=== PATIENT | female | born 1975 | race Caucasian/White ===

== ENCOUNTER 2018-04-01 17:20 | Outpatient (CLI) | payer OTHER ==
--- NOTE | 2018-04-02 10:49 | XRAY Report ---
Reason: COUGH Procedure Date: 04/01/2018 Accession Number: [id number] / [id number] Procedure: XR - Chest 2 View X-Ray CPT Code: 27553 FULL RESULT: EXAM: CHEST RADIOGRAPHY EXAM DATE: 04/01/2018 05:49 PM. CLINICAL HISTORY: Cough. COMPARISON: None. TECHNIQUE: 2 views. FINDINGS: Lungs/Pleura: There is mild peribronchial thickening. No focal airspace opacities evident. No pleural effusion. No pneumothorax. Normal volumes. Mediastinum: Heart and mediastinal contours are unremarkable. Other: None. IMPRESSION: Mild bronchial thickening with no lobar airspace disease. RADIA
== END 2018-04-01 17:21 | disposition home or self-care (01) ==
LOC: DI 17:20
PROVIDERS: ATTEND Nurse Practitioner Family
DX: R05 Cough (principal); F17.200 Nicotine dependence, unspecified, uncomplicated
CPT/HCPCS: 71046

== ENCOUNTER 2020-01-24 14:55 | Outpatient (CLI) | payer OTHER ==
--- NOTE | 2020-01-26 08:15 | Mammography Report ---
BILATERAL DIGITAL SCREENING MAMMOGRAM 3D/2D: 01/24/2020 CLINICAL: Baseline exam. Routine screening. No prior exams were available for comparison. The tissue of both breasts is heterogeneously dense. T his may lower the sensitivity of mammography. There is a possible irregular high density focal asymmetry in the right breast at 11 o'clock posterio r depth. There is a low density focal asymmetry in the left breast at 5 o'clock anterior depth. No other significant masses or calcifications are seen in either breast. IMPRESSION: INCOMPLETE: NEEDS ADDITIONAL IMAGING EVALUATION 1) The possible irregular high density focal asymmetry in the right breast at 11 o'clock posterior de pth is indeterminate. -Additional views with possible ultrasound are recommended. 2) The low density focal asymmetry in the left breast at 5 o'clock anterior depth is indeterminate. -Additional views with possible ultrasound are recommended. This exam was interpreted at Station ID: [id number]. NOTE: For mammograms, a report in lay terms will be sent to the patient. Approximately 15% of breast malignancies will not be visualized mammographically. In the management of a palpable breast mass, a negative mammogram must not discourage biopsy of a clinically suspicious lesion. Electronically Signed By: Héctor Cristina M.D. slc/:01/25/2020 08:05:15 ACR BI-RADS Category 0: Incomplete 3340F PARENCHYMAL PATTERN: (D) - The breast(s) demonstrate(s) heterogeneously dense fibroglandular christin temple. BI-RADS CATEGORY: (0) - 0 Mammo and US [id number] Immediate follow-up LATERALITY: (B)
== END 2020-01-24 14:56 | disposition home or self-care (01) ==
LOC: DI 14:55
PROVIDERS: ATTEND Nurse Practitioner Family
DX: Z12.31 Encounter for screening mammogram for malignant neoplasm of breast (principal); R92.8 Other abnormal and inconclusive findings on diagnostic imaging of breast
CPT/HCPCS: 77063; 77067

== ENCOUNTER 2020-02-25 08:00 | Outpatient (CLI) | payer OTHER | END 2020-02-25 23:59 | disposition home or self-care (01) | LOC: LAB.R 08:00 | PROVIDERS: ATTEND Physician Assistant | DX: R30.0 Dysuria (principal) | CPT/HCPCS: 87086 ==

== ENCOUNTER 2020-05-27 08:00 | Outpatient (CLI) | payer OTHER | END 2020-05-27 23:59 | disposition home or self-care (01) | LOC: LAB.R 08:00 | PROVIDERS: ATTEND Physician Assistant | DX: N39.0 Urinary tract infection, site not specified (principal) | CPT/HCPCS: 87077; 87086; 87181 ==

== ENCOUNTER 2020-09-08 12:55 | Outpatient (CLI) | payer OTHER ==
--- NOTE | 2020-09-11 12:58 | Ultrasound Report ---
LIMITED ULTRASOUND OF LEFT BREAST: 09/08/2020 CLINICAL: Short term follow up of the left breast, due for bilateral imaging. No prior exams were available for comparison. Color flow and real-time ultrasound of the left breast 3 o'clock and 6 o'clock regions were performe d. [place] scale images of the real-time examination were reviewed. There is a 1.2 cm x 0.3 cm x 0.6 cm oval mass in the left breast at 6 o'clock anterior depth 2 cm fro m the nipple. This oval mass is hypoechoic. This may correlate with mammography findings. Color jamal w imaging demonstrates that there is no vascularity present. There also is a 1 cm x 0.4 cm x 0.4 cm oval mass in the left breast at 6 o'clock middle depth 3 cm fr om the nipple. This oval mass is hypoechoic. This may correlate with mammography findings. Color f low imaging demonstrates that there is no vascularity present. Additionally, there is a 0.5 cm x 0.4 cm x 0.4 cm oval mass in the left breast at 3 o'clock anterior depth 3 cm from the nipple. This oval mass is hypoechoic. Color flow imaging demonstrates that ther e is no vascularity present. IMPRESSION: PROBABLY BENIGN The 1.2 cm x 0.3 cm x 0.6 cm oval mass in the left breast at 6 o'clock anterior depth resembles a com plicated cyst or a lymph node and is probably benign. The 1 cm x 0.4 cm x 0.4 cm oval mass in the left breast at 6 o'clock middle depth resembles a complic ated cyst or a lymph node and is probably benign. The 0.5 cm x 0.4 cm x 0.4 cm oval mass in the left breast at 3 o'clock anterior depth is consistent w ith clustered cysts, a complicated cyst, or a lymph node and is probably benign. A follow-up mammogram and an ultrasound in 6 months is recommended to demonstrate stability. Findings and recommendations were conveyed to the patient during today's evaluation. This exam was interpreted at Station ID: [id number]. Electronically Signed By: Shay Dye M.D. aty/:09/08/2020 18:05:43 Ultrasound BI-RADS: 3 Probably benign BI-RADS CATEGORY: (3) - 3 Mammo and US [id number] 6 month follow-up LATERALITY: (B)
--- NOTE | 2020-09-11 12:58 | Ultrasound Report ---
LIMITED ULTRASOUND OF RIGHT BREAST: 09/08/2020 CLINICAL: Short term follow up for bilateral breasts. No prior exams were available for comparison. Color flow and real-time ultrasound of the right breast 11 o'clock region were performed. [place] scale images of the real-time examination were reviewed. There is a 1 cm x 0.4 cm x 0.9 cm oval cyst in the right breast at 11 o'clock anterior depth 1 cm fro m the nipple. This oval cyst is hypoechoic. Color flow imaging demonstrates that there is no vascul arity present. There also is a 0.9 cm x 0.4 cm x 0.9 cm oval cyst in the right breast at 11 o'clock middle depth 1 c m from the nipple. This oval cyst is hypoechoic. Color flow imaging demonstrates that there is no v ascularity present. IMPRESSION: PROBABLY BENIGN The 1 cm x 0.4 cm x 0.9 cm oval cyst in the right breast at 11 o'clock anterior depth resembles a com plicated cyst versus focal ductal ectasia and is probably benign. The 0.9 cm x 0.4 cm x 0.9 cm oval cyst in the right breast at 11 o'clock middle depth resembles a com plicated cyst or focal ductal ectasia and is probably benign. A follow-up mammogram and an ultrasound in 6 months is recommended to demonstrate stability. Findings and recommendations were conveyed to the patient during today's evaluation. This exam was interpreted at Station ID: [id number]. Electronically Signed By: Shay Dye M.D. aty/:09/08/2020 18:11:19 Ultrasound BI-RADS: 3 Probably benign BI-RADS CATEGORY: (3) - 3 Mammo and US [id number] 6 month follow-up LATERALITY: (B)
--- NOTE | 2020-09-11 12:58 | Mammography Report ---
BILATERAL DIGITAL DIAGNOSTIC MAMMOGRAM 3D/2D: 09/08/2020 CLINICAL: Patient returns today to evaluate asymmetries in bilateral breasts. Comparison is made to exam dated: 01/24/2020 mammogram - [facility]. The tissue of both breasts is heterogeneously dense. This may lower the sensitivity of mammography. There is a possible oval high density focal asymmetry in the right breast at 11 o'clock posterior dep th. This is not significantly changed. There is a low density focal asymmetry in the left breast at 5 o'clock anterior depth. This is not s ignificantly changed. No other significant masses or calcifications are seen in either breast. IMPRESSION: INCOMPLETE: NEEDS ADDITIONAL IMAGING EVALUATION The possible oval high density focal asymmetry in the right breast at 11 o'clock posterior depth is i ndeterminate. The low density focal asymmetry in the left breast at 5 o'clock anterior depth is indeterminate. An ultrasound is recommended for further evaluation and is scheduled to immediately follow this exami nation. This exam was interpreted at Station ID: [id number]. NOTE: For mammograms, a report in lay terms will be sent to the patient. Approximately 15% of breast malignancies will not be visualized mammographically. In the management of a palpable breast mass, a negative mammogram must not discourage biopsy of a clinically suspicious lesion. Electronically Signed By: Shay Dye M.D. aty/:09/08/2020 15:02:25 ACR BI-RADS Category 0: Incomplete 3340F PARENCHYMAL PATTERN: (D) - The breast(s) demonstrate(s) heterogeneously dense fibroglandular christin temple. BI-RADS CATEGORY: (0) - 0 Ultrasound [id number] Immediate follow-up LATERALITY: (B)
== END 2020-09-08 12:56 | disposition home or self-care (01) ==
LOC: DI 12:55
PROVIDERS: ATTEND Nurse Practitioner Family
DX: N60.12 Diffuse cystic mastopathy of left breast (principal); N60.11 Diffuse cystic mastopathy of right breast

== ENCOUNTER 2020-12-17 08:00 | Outpatient (CLI) | payer OTHER | END 2020-12-17 23:59 | disposition home or self-care (01) | LOC: LAB.S 08:00 | PROVIDERS: ATTEND Emergency Medicine | DX: R07.0 Pain in throat (principal); Z20.822 Contact with and (suspected) exposure to COVID-19 | CPT/HCPCS: 87070; 87077 ==

== ENCOUNTER 2021-03-28 18:45 | Outpatient (CLI) | payer OTHER | END 2021-03-28 23:59 | disposition home or self-care (01) | LOC: LAB 18:45 | PROVIDERS: ATTEND Emergency Medicine | DX: R07.0 Pain in throat (principal); Z20.822 Contact with and (suspected) exposure to COVID-19 | CPT/HCPCS: 87070 ==

== ENCOUNTER 2021-04-06 08:00 | Outpatient (CLI) | payer OTHER ==
--- NOTE | 2021-04-06 23:57 | XRAY Report ---
PROCEDURE: Chest 2 View X-Ray INDICATIONS: COUGH TECHNIQUE: 2 views of the chest. COMPARISON: Chest radiographs 04/01/2018. FINDINGS: Surgical changes and devices: None. Lungs and pleura: No pleural effusions or pneumothorax. Lungs are clear. Mediastinum: Mediastinal contours are normal. Heart size is normal. Bones and chest wall: No suspicious bony abnormalities. Soft tissues appear unremarkable. IMPRESSION: No acute cardiopulmonary abnormality. Reviewed by: Vik Mejias MD on 04/06/2021 11:56 PM PST Approved by: Vik Mejias MD on 04/06/2021 11:56 PM [facility] Station ID: [id number]
== END 2021-04-06 23:59 | disposition home or self-care (01) ==
LOC: DI.S 08:00
PROVIDERS: ATTEND Physician Assistant Medical
DX: R05.9 Cough, unspecified (principal); J06.9 Acute upper respiratory infection, unspecified; Z20.822 Contact with and (suspected) exposure to COVID-19

== ENCOUNTER 2021-09-19 13:43 | Outpatient (CLI) | payer OTHER | END 2021-09-19 13:44 | disposition critical access hospital (66) | LOC: EMS 13:43 | DX: M79.10 Myalgia, unspecified site (principal); R51.9 Headache, unspecified; R50.9 Fever, unspecified; R11.0 Nausea; R42 Dizziness and giddiness | CPT/HCPCS: A0425; A0427 ==

== ENCOUNTER 2021-09-19 14:19 | Emergency (ER) | payer OTHER ==
--- NOTE | 2021-09-19 14:20 | ED Physician Documentation ---
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 Nausea with some vomiting. General weakness since last night.) Associated symptoms: Fever, Chills, Dry cough, Dyspnea, NVD. No: Nasal congestion, Chest pain Contributing factors: Sick contact (her son with URI symptoms at home and tested COVID negative. She did home test 3 days ago and was negative.), COPD / asthma, Other (history of migraines as well.). No: Immunocompromised Worsened by: Activity Similar symptoms before: Diagnosis (migraines) Recently seen: Not recently seen Review of Systems Constitutional: reports: Chills, Myalgias Nose: reports: Rhinorrhea / runny nose, Congestion Throat: denies: Dental pain / toothache, Sore throat Cardiac: denies: Chest pain / pressure Respiratory: reports: Dyspnea, Cough GI: reports: Nausea, Vomiting. denies: Abdominal Pain, Diarrhea Skin: denies: Rash, Lesions Musculoskeletal: denies: Neck pain, Back pain Neurologic: reports: Headache (c/w prior migraines with light sensitive, wavy lines on vision, vomiting.). 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 - Present Medications Home Medications: Ambulatory Orders Medication Instructions Recorded Confirmed Hydrocodone/Acetaminophen 1 each PO Q6H PRN #10 tablet 05/20/14 [Hydrocodon-Acetaminophen 5-325] Ondansetron Odt [Zofran] 4 mg TL Q6H PRN #10 tablet 05/20/14 Thyroid,Pork [Nature-Throid] 1.5 tab ORAL DAILY 05/20/14 05/20/14 Benzonatate [Tessalon] 100 mg PO TID PRN #20 cap 09/19/21 Naproxen 250 mg PO TID 7 Days #20 tablet 09/19/21 Ondansetron Odt [Zofran] 4 mg TL Q6H PRN #15 tablet 09/19/21 Oxycodone HCl/Acetaminophen 1 each PO Q6H PRN #12 tablet 09/19/21 [Percocet 5-325 mg Tablet] - Allergies Allergies/Adverse Reactions: Allergies Allergy/AdvReac Type Severity Reaction Status Date / Time No Known Drug Allergies Allergy Verified 09/19/21 14:38 - Social History Does the pt smoke?: Yes Smoking Status: Current every day smoker Does the pt drink ETOH?: No Does the pt have substance abuse?: No - Immunizations Immunizations are current?: Yes PD ED PE NORMAL - Vitals Vital signs reviewed: Yes - General General: Alert and oriented X 3, Well developed/nourished, Other (appears uncomfortable and in pain due to headache. COvering eyes to minimize light. ) - HEENT HEENT: Atraumatic, PERRL, EOMI (light sensitive), Ears normal, Moist mucous membranes, Pharynx benign - Neck Neck: Supple, no meningeal sign, No adenopathy - Cardiac Cardiac: RRR, No murmur - Respiratory Respiratory: No respiratory distress. No: Clear bilaterally (some scattered exp wheezes. No coarse sounds. ) - Abdomen Abdomen: Soft, Non tender - Back Back: No CVA TTP - Derm Derm: Normal color, Warm and dry, No rash - Neuro Neuro: Alert and oriented X 3, No motor deficit, No sensory deficit, Normal speech Results - Vitals Vitals: Oxygen O2 Source Room air - Labs Labs: Laboratory Tests 09/19/21 09/19/21 09/19/21 14:42 14:42 14:42 WBC 8.9 RBC 4.45 Hgb 13.4 Hct 40.3 MCV 90.6 MCH 30.1 MCHC 33.3 RDW 12.8 Plt Count 249 MPV 10.3 Neut # (Auto) 7.5 H Lymph # (Auto) 0.4 L Kane # (Auto) 0.9 Eos # (Auto) 0.1 Baso # (Auto) 0.1 Absolute Nucleated RBC 0.00 Nucleated RBC % 0.0 Sodium 127 L Potassium 4.2 Chloride 92 L Carbon Dioxide 25 Anion Gap 10.0 BUN 8 Creatinine 0.7 Estimated GFR (MDRD) 90 Glucose 114 H Lactic Acid 1.2 Calcium 8.9 Total Bilirubin 0.3 AST 17 ALT 18 Alkaline Phosphatase 70 Total Protein 7.1 Albumin 4.0 Globulin 3.1 Albumin/Globulin Ratio 1.3 Lipase 28 Urine Color Urine Clarity Urine pH Ur Specific [place] Urine Protein Urine Glucose (UA) Urine Ketones Urine Occult Blood Urine Nitrite Urine Bilirubin Urine Urobilinogen Ur Leukocyte Esterase Ur Microscopic Review Urine Culture Comments Nasal Adenovirus (PCR) Nasal B. parapertussis DNA (PCR) Nasal Coronavir 229E PCR Nasal Coronavir HKU1 PCR Nasal Coronavir NL63 PCR Nasal Coronavir OC43 PCR Nasal Enterovir/Rhinovir PCR Nasal Influenza B PCR Nasal Influenza A PCR Nasal Parainfluen 1 PCR Nasal Parainfluen 2 PCR Nasal Parainfluen 3 PCR Nasal Parainfluen 4 PCR Nasal RSV (PCR) Nasal B.pertussis DNA PCR Nasal C.pneumoniae (PCR) Lucho Human Metapneumo PCR Nasal M.pneumoniae (PCR) Nasal SARS-CoV-2 (PCR) 09/19/21 09/19/21 15:45 15:45 WBC RBC Hgb Hct MCV MCH MCHC RDW Plt Count MPV Neut # (Auto) Lymph # (Auto) Kane # (Auto) Eos # (Auto) Baso # (Auto) Absolute Nucleated RBC Nucleated RBC % Sodium Potassium Chloride Carbon Dioxide Anion Gap BUN Creatinine Estimated GFR (MDRD) Glucose Lactic Acid Calcium Total Bilirubin AST ALT Alkaline Phosphatase Total Protein Albumin Globulin Albumin/Globulin Ratio Lipase Urine Color YELLOW Urine Clarity CLEAR Urine pH 7.5 Ur Specific [place] 1.020 Urine Protein NEGATIVE Urine Glucose (UA) NEGATIVE Urine Ketones NEGATIVE Urine Occult Blood TRACE-INTA Urine Nitrite NEGATIVE Urine Bilirubin NEGATIVE Urine Urobilinogen 0.2 (NORMAL) Ur Leukocyte Esterase NEGATIVE Ur Microscopic Review NOT INDICATED Urine Culture Comments NOT INDICATED Nasal Adenovirus (PCR) NOT DETECTED Nasal B. parapertussis DNA (PCR) NOT DETECTED Nasal Coronavir 229E PCR NOT DETECTED Nasal Coronavir HKU1 PCR NOT DETECTED Nasal Coronavir NL63 PCR NOT DETECTED Nasal Coronavir OC43 PCR NOT DETECTED Nasal Enterovir/Rhinovir PCR DETECTED A Nasal Influenza B PCR NOT DETECTED Nasal Influenza A PCR NOT DETECTED Nasal Parainfluen 1 PCR NOT DETECTED Nasal Parainfluen 2 PCR NOT DETECTED Nasal Parainfluen 3 PCR NOT DETECTED Nasal Parainfluen 4 PCR NOT DETECTED Nasal RSV (PCR) NOT DETECTED Nasal B.pertussis DNA PCR NOT DETECTED Nasal C.pneumoniae (PCR) NOT DETECTED Lucho Human Metapneumo PCR NOT DETECTED Nasal M.pneumoniae (PCR) NOT DETECTED Nasal SARS-CoV-2 (PCR) DETECTED A - Rads (name of study) chest xray Radiology: Prelim report reviewed (no infiltrates), See rad report PD MEDICAL DECISION MAKING - ED course Complexity details: re-evaluated patient (Her headache is greatly improved with migraine targeted type medicine of Compazine and Toradol. Her nausea is improved as well. She is given 2 L of fluid IV.), considered differential (Seems like a viral illness. We can test for COVID. This seems to have also triggered a migraine with migrainous character of headache. She does not seem meningitic by exam. Will give IV fluids and medications.), d/w patient ED course: history of migraines and has BMI 29. Could benefit from Paxlovid with her COVID. IMproved headache/migraine with IV fluids/meds. Departure - Departure Disposition: 01 Home, Self Care Clinical Impression: Acute migraine, Acute viral syndrome, Dehydration Condition: Stable Record reviewed to determine appropriate education?: Yes Instructions: ED Viral Syndrome Prescriptions: Naproxen 250 mg PO TID 7 Days #20 tablet Oxycodone HCl/Acetaminophen [Percocet 5-325 mg Tablet] 1 each PO Q6H PRN #12 tablet PRN Reason: pain Benzonatate [Tessalon] 100 mg PO TID PRN #20 cap PRN Reason: Cough Ondansetron Odt [Zofran] 4 mg TL Q6H PRN #15 tablet PRN Reason: Nausea / Vomiting Comments: Presume this is a viral illness with triggering of migraine as well as some dehydration. I would expect some illness to continue over the next couple of days likely. For that we can have you take ondansetron if needed for nausea and naproxen anti-inflammatory 3 times a day for pains and headache. To that add Tylenol every 4-6 hours if needed for pain or Percocet if needed for worse pain/headache. Tessalon if needed for cough. I transmitted your prescriptions to [facility] in [place]. Your blood counts and vital signs are good. Your oxygenation level is good. No signs of sepsis at this point. Your chest x-ray is also clear without any pneumonia. Urinalysis without any signs of infection. I therefore presume a viral type illness. We did do COVID respiratory panel that will result later. Your home test has been negative but we rechecked. Small frequent fluids and see how you do over the next couple of days. Return if worse again. I am prescribing a short course of narcotic pain medication for you. These are potentially dangerous and addictive medications that should be used carefully. These medications may constipate you. Take an [id number] stool softener such as docusate twice daily with plenty of water while taking these medications. If you go 24 hours without a bowel movement, take [id number] MiraLAX, per package instructions. Do not drink or drive while taking these medications. If you received narcotic or sedating medications while in the emergency department do not drive for 24 hours. Store this medication in a safe, secure place and out of reach of children. It is a violation of federal law to give or sell this medication to another person or to use in a manner other than prescribed. The ED will not refill narcotic prescriptions, including prescriptions lost or stolen. You can dispose of unwanted medications at the [facility]'s office or at several pharmacies such as [facility]. Added commentary, Your respiratory panel just resulted and showed 2 viruses present. One was rhinovirus which is a common head cold. The other was COVID. As such she can take the pack Slo-Bid as directed in the kit twice daily for 5 days to help reduce the severity of the COVID infection. Discharge Date/Time: 09/19/21 17:13
[2021-09-19] MEDS ORDERED: KETOROLAC 15 MG/ML VIAL IVP STA (14:32)
[2021-09-19] MEDS ORDERED: SODIUM CHLORIDE 0.9% 1,000 ML IV STA ×2 (14:34→15:08)
[2021-09-19] MEDS ORDERED: PROCHLORPERAZINE 10 MG/2 ML VIAL IVP STA (14:34)
[2021-09-19] MEDS ORDERED: diphenhydrAMINE INJ 50 MG/ML VIAL IVP STA (14:34)
[2021-09-19] MEDS ORDERED: HYDROmorphone 0.5 MG/0.5 ML SYRINGE IVP STA ×2 (14:37→15:29)
[2021-09-19 14:53] LABS: BASOPHILS # (AUTO) 0.1 10^3/uL (0.0-0.1); BASOPHILS % (AUTO) 0.9 %; EOSINOPHILS # (AUTO) 0.1 10^3/uL (0.0-0.7); EOSINOPHILS % (AUTO) 0.6 %; HCT - HEMATOCRIT 40.3 % (37.0-47.0); HGB - HEMOGLOBIN 13.4 g/dL (12.0-16.0); LYMPHOCYTES # (AUTO) 0.4 10^3/uL (1.5-3.5); MEAN CORPUSCULAR HEMOGLOBIN 30.1 pg (27.0-31.0); MEAN CORPUSCULAR HGB CONC 33.3 g/dL (32.0-36.0); MEAN CORPUSCULAR VOLUME 90.6 fL (81.0-99.0); MEAN PLATELET VOLUME 10.3 fL (7.9-10.8); MONOCYTES # (AUTO) 0.9 10^3/uL (0.0-1.0); MONOCYTES % (AUTO) 10.2 %; NEUTROPHILS # (AUTO) 7.5 10^3/uL (1.5-6.6); NEUTROPHILS % (AUTO) 83.9 %; PLT - PLATELET COUNT 249 10^3/uL (130-450); RED BLOOD COUNT 4.45 10^6/uL (4.20-5.40); RED CELL DISTRIBUTION WIDTH 12.8 % (12.0-15.0); WHITE BLOOD COUNT 8.9 x10^3/uL (4.8-10.8)
--- NOTE | 2021-09-19 14:59 | XRAY Report ---
PROCEDURE: Chest 1 View X-Ray INDICATIONS: cough and dyspnea/fever TECHNIQUE: One view of the chest was acquired. COMPARISON: None. FINDINGS: Surgical changes and devices: None. Lungs and pleura: No pleural effusions or pneumothorax. Lungs are clear. Mediastinum: Mediastinal contours appear normal. Heart size is normal. Bones and chest wall: No suspicious bony lesions. Overlying soft tissues appear unremarkable. IMPRESSION: No acute cardiopulmonary pathology. Reviewed by: Aryan Donaldson MD on 09/19/2021 2:57 PM PDT Approved by: Aryan Donaldson MD on 09/19/2021 2:57 PM PDT Station ID: [id number]
[2021-09-19 15:03] LABS: ALBUMIN/GLOBULIN RATIO 1.3 (1.0-2.2); BILIRUBIN,TOTAL 0.3 mg/dL (0.2-1.0); CALCIUM 8.9 mg/dL (8.5-10.3); CREATININE 0.7 mg/dL (0.4-1.0); POTASSIUM 4.2 mmol/L (3.5-5.0); TOTAL PROTEIN 7.1 g/dL (6.7-8.2)
[2021-09-19] MEDS ORDERED: ACETAMINOPHEN 325 MG TABLET PO STA (15:28)
[2021-09-19 15:54] LABS: BILIRUBIN,URINE NEGATIVE (NEGATIVE); CLARITY,URINE CLEAR (CLEAR); GLUCOSE, URINE (UA) NEGATIVE (NEGATIVE); KETONES,URINE (UA) NEGATIVE (NEGATIVE); LEUKOCYTE ESTERASE, URINE NEGATIVE (NEGATIVE); NITRITE,URINE NEGATIVE (NEGATIVE); OCCULT BLOOD,URINE TRACE-INTA (NEGATIVE); PH,URINE 7.5 PH (5.0-7.5); PROTEIN,URINE NEGATIVE (NEGATIVE); UROBILINOGEN,URINE 0.2 (NORMAL) E.U./dL (NORMAL)
[2021-09-19 16:31] VITALS: BP 115/72
[2021-09-19 16:43] LABS: B. PARAPERTUSSIS- RESP PCR PAN NOT DETECTED; B. PERTUSSIS- RESP PCR PANEL NOT DETECTED; C. PNEUMONIAE- RESP PCR PANEL NOT DETECTED; CORONAVIRUS 229E-RESP PCR NOT DETECTED; CORONAVIRUS HKU1-RESP PCR NOT DETECTED; CORONAVIRUS NL63-RESP PCR NOT DETECTED; INFLUENZA A- RESP PCR PANEL NOT DETECTED; INFLUENZA B - RESP PCR PANEL NOT DETECTED; M. PNEUMONIAE- RESP PCR PANEL NOT DETECTED; PARAINFLUENZA VIRUS 1 NOT DETECTED; PARAINFLUENZA VIRUS 2 NOT DETECTED; PARAINFLUENZA VIRUS 3 NOT DETECTED; PARAINFLUENZA VIRUS 4 NOT DETECTED; RHINOVIRUS/ENTEROVIRUS DETECTED; RSV- RESP PCR PANEL NOT DETECTED
[2021-09-19 16:44] LABS: CORONAVIRUS OC43-RESP PCR NOT DETECTED; HUMAN METAPNEUMOVIRUS NOT DETECTED
[2021-09-19 16:45] LABS: SARS-CoV-2 -RESP PCR PANEL DETECTED
[2021-09-19] MEDS ORDERED: NIRMATRELVIR/RITONAVIR PREPACK PO STA (16:50)
== END 2021-09-19 17:13 | disposition home or self-care (01) ==
LOC: EDUNIT# → EDBD → ED 14:19
DX: G43.909 Migraine, unspecified, not intractable, without status migrainosus (principal); E86.0 Dehydration; B34.8 Other viral infections of unspecified site; U07.1 COVID-19; F17.200 Nicotine dependence, unspecified, uncomplicated
CPT/HCPCS: 36415; 71045; 80053; 81003; 83605; 83690; 85025; 87633; 96361; 96374; 96375; 99284; 99285; A9270; J1170; J1200; J3490; 81001; 87086

== ENCOUNTER 2021-09-24 13:13 | Emergency (ER) | payer OTHER ==
[2021-09-24] MEDS ORDERED: SODIUM CHLORIDE 0.9% 1,000 ML IV STA (13:46)
[2021-09-24] MEDS ORDERED: HYDROmorphone 1 MG/ML CARPUJECT IVP STA (13:46)
[2021-09-24] MEDS ORDERED: KETOROLAC 15 MG/ML VIAL IVP STA (13:46)
[2021-09-24] MEDS ORDERED: PROCHLORPERAZINE 10 MG/2 ML VIAL IVP STA (13:46)
--- NOTE | 2021-09-24 13:47 | ED Physician Documentation ---
PD HPI HEADACHE - Stated complaint Stated Complaint: C+,HEADACHE,DIZZY,NAUSEA - Chief complaint Chief Complaint: Neuro - History obtained from History obtained from: Patient - Additional information Additional information: 46-year-old woman presents with persistent headache related to COVID. She has been sick for the last 8 days and saw my partner last Friday at which time she was diagnosed with COVID. She has a history of migraines but despite her usual migraine regimen including rizatriptan, Fioricet, Tylenol and ibuprofen she remains having very severe diffuse headache associated with light sensitivity. No more fevers. No cough or congestion of significance. She was sent home with a prescription for Percocet last week which she was helped by, noting she is out now. She is not driving. She is status post remote hysterectomy so no possibility of . Headache was gradual in onset. Review of Systems Ten Systems: 10 systems reviewed and negative Constitutional: reports: Chills, Fatigue, Sweats. 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 - Present Medications Home Medications: Ambulatory Orders Medication Instructions Recorded Confirmed Hydrocodone/Acetaminophen 1 each PO Q6H PRN #10 tablet 05/20/14 [Hydrocodon-Acetaminophen 5-325] Ondansetron Odt [Zofran] 4 mg TL Q6H PRN #10 tablet 05/20/14 Thyroid,Pork [Nature-Throid] 1.5 tab ORAL DAILY 05/20/14 05/20/14 Benzonatate [Tessalon] 100 mg PO TID PRN #20 cap 09/19/21 Naproxen 250 mg PO TID 7 Days #20 tablet 09/19/21 Ondansetron Odt [Zofran] 4 mg TL Q6H PRN #15 tablet 09/19/21 Oxycodone HCl/Acetaminophen 1 each PO Q6H PRN #12 tablet 09/19/21 [Percocet 5-325 mg Tablet] Oxycodone HCl/Acetaminophen 1 - 2 each PO Q6H PRN #14 tablet 09/24/21 [Percocet 5-325 mg Tablet] - Allergies Allergies/Adverse Reactions: Allergies Allergy/AdvReac Type Severity Reaction Status Date / Time No Known Drug Allergies Allergy Verified 09/24/21 13:37 - Social History Does the pt smoke?: Yes Smoking Status: Current every day smoker Does the pt drink ETOH?: No Does the pt have substance abuse?: No - Immunizations Immunizations are current?: Yes PD ED PE NORMAL - Vitals Vital signs reviewed: Yes - General General: Alert and oriented X 3 (Appears uncomfortable and light sensitive without meningismus.) - HEENT HEENT: PERRL, EOMI - Neck Neck: Supple, no meningeal sign, No bony TTP - Respiratory Respiratory: No respiratory distress, Clear bilaterally - Abdomen Abdomen: Non tender - Neuro Neuro: Alert and oriented X 3, No motor deficit, No sensory deficit, Normal speech Eye Opening: Spontaneous Motor: Obeys Commands Verbal: Oriented GCS Score: 15 Results - Vitals Vitals: Vital Signs - 24 hr 09/24/21 13:33 Temperature 98.2 C H Heart Rate 92 Respiratory 16 Rate Blood Pressure 136/84 H O2 Saturation 100 Oxygen O2 Source Room air PD MEDICAL DECISION MAKING - ED course ED course: 46-year-old woman with history of migraines presents with significant headache related to COVID. She does not appear ill and has no signs of meningismus or other severe illness. After the administration of some IV fluids, Compazine, Toradol, and Dilaudid she felt much better and requested discharge. Departure - Departure Disposition: 01 Home, Self Care Clinical Impression: Acute viral syndrome, Migraine Condition: Good Record reviewed to determine appropriate education?: Yes Instructions: ED Viral Syndrome, ED Headache Migraine Prescriptions: Oxycodone HCl/Acetaminophen [Percocet 5-325 mg Tablet] 1 - 2 each PO Q6H PRN #14 tablet PRN Reason: pain Comments: I sent your prescription electronically to [facility] in [place]. Call your doctor to arrange a follow-up appointment, make the next available appointment. In the interim, return anytime if worse or if new symptoms develop. I am prescribing a short course of narcotic pain medication for you. These are potentially dangerous and addictive medications that should be used carefully. These medications may constipate you. Take an [id number] stool softener (docusate) twice daily with plenty of water while taking these medications. If you go 24 hours without a bowel movement, take [id number] miralax, per package instructions. Do not drink or drive while taking these medications. If you received narcotic or sedating medications while in the emergency department, do not drive for 24 hours. Store this medication in a safe, secure place and out of reach of children. It is a violation of federal law to give or sell this medication to another person or to use in a manner other than prescribed. The ED will not refill narcotic prescriptions, including prescriptions lost or stolen. To dispose of unwanted medications: 1. [facility] at [address] in [place] has a medication drop box. They accept prescription medications (in pill form) Friday through Friday 9:00 a.m. to 5:00 p.m. 2. The [facility] [employer] accepts prescription medications (in pill form only) for disposal year round. Call for more information. 3. Contact the [facility] for the next [facility] sponsored prescription drug collection event. , [phone], or [phone]; Note that many narcotic pain relievers also contain Tylenol/acetaminophen. Please ensure that your total dose of acetaminophen from all sources does not exceed 3 g (3000 mg) per day.
[2021-09-24 14:39] VITALS: BP 127/72
== END 2021-09-24 15:15 | disposition home or self-care (01) ==
LOC: ED 13:13
DX: U07.1 COVID-19 (principal); G43.909 Migraine, unspecified, not intractable, without status migrainosus; B34.9 Viral infection, unspecified; F17.200 Nicotine dependence, unspecified, uncomplicated
CPT/HCPCS: 96374; 99283; J1170

== ENCOUNTER 2022-02-27 13:20 | Outpatient (CLI) | payer OTHER ==
[2022-02-27 20:18] LABS: THYROID STIMULATING HORMONE 5.11 uIU/mL (0.34-5.60)
[2022-02-27 20:19] LABS: FREE T3 2.99 pg/mL (2.5-3.9)
[2022-02-27 20:20] LABS: FREE T4 (FREE THYROXINE) 0.74 ng/dL (0.58-1.64)
== END 2022-02-27 13:21 | disposition home or self-care (01) ==
LOC: LAB.S 13:20
PROVIDERS: ATTEND Naturopath
DX: E03.9 Hypothyroidism, unspecified (principal)
CPT/HCPCS: 36415; 84439; 84443; 84481

== ENCOUNTER 2022-10-24 11:05 | Emergency (ER) | payer OTHER ==
[2022-10-24 11:29] VITALS: BP 136/77
[2022-10-24] MEDS ORDERED: diphenhydrAMINE INJ 50 MG/ML VIAL IVP STA (12:41)
[2022-10-24] MEDS ORDERED: PROCHLORPERAZINE 10 MG/2 ML VIAL IVP STA (12:41)
[2022-10-24] MEDS ORDERED: KETOROLAC 30 MG/ML VIAL IVP STA (12:42)
--- NOTE | 2022-10-24 12:44 | ED Physician Documentation ---
History of Present Illness - Stated complaint Stated Complaint: MIGRAINE,LETHARGIC,COUGH - Chief complaint Chief Complaint: General - Additonal information Additional information: 47-year-old female presents to the emergency department for evaluation of several days headache, nausea and vomiting. States that she is prone to migraines and in the past has used triptans but her PCP retired and has not been able to get a refill. She recently underwent abdominal mesh surgery for uterine prolapse and used oxycodone without resolution of symptoms. No fevers. She does endorse light and noise sensitivity. She has not vomited now for 48 hours but reports complete lack of appetite, Also states that she has had a cough for about a week and coughing in the setting of her recent surgery is exacerbating her abdominal pain. No fevers. Review of Systems Constitutional: denies: Fever Nose: denies: Congestion Cardiac: reports: Reviewed and negative Respiratory: reports: Cough GI: reports: Abdominal Pain, Nausea, Vomiting : reports: Reviewed and negative Skin: reports: Reviewed and negative Musculoskeletal: reports: Reviewed and negative Neurologic: reports: Headache. 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 - Present Medications Home Medications: Ambulatory Orders Medication Instructions Recorded Confirmed Hydrocodone/Acetaminophen 1 each PO Q6H PRN #10 tablet 05/20/14 [Hydrocodon-Acetaminophen 5-325] Ondansetron Odt [Zofran] 4 mg TL Q6H PRN #10 tablet 05/20/14 Thyroid,Pork [Nature-Throid] 1.5 tab ORAL DAILY 05/20/14 05/20/14 Benzonatate [Tessalon] 100 mg PO TID PRN #20 cap 09/19/21 Naproxen 250 mg PO TID 7 Days #20 tablet 09/19/21 Ondansetron Odt [Zofran] 4 mg TL Q6H PRN #15 tablet 09/19/21 Oxycodone HCl/Acetaminophen 1 each PO Q6H PRN #12 tablet 09/19/21 [Percocet 5-325 mg Tablet] Oxycodone HCl/Acetaminophen 1 - 2 each PO Q6H PRN #14 tablet 09/24/21 [Percocet 5-325 mg Tablet] Benzonatate [Tessalon] 200 mg PO TID PRN #20 cap 10/24/22 SUMAtriptan [Imitrex] 25 mg PO BID #6 tablet 10/24/22 - Allergies Allergies/Adverse Reactions: Allergies Allergy/AdvReac Type Severity Reaction Status Date / Time No Known Drug Allergies Allergy Verified 10/24/22 11:24 - Social History Does the pt smoke?: Yes Smoking Status: Current every day smoker Does the pt drink ETOH?: No Does the pt have substance abuse?: No - Immunizations Immunizations are current?: Yes PD ED PE NORMAL - General General: Alert and oriented X 3, No acute distress, Well developed/nourished - HEENT HEENT: Atraumatic, Moist mucous membranes - Neck Neck: Supple, no meningeal sign, No adenopathy, No JVD - Cardiac Cardiac: No murmur. No: RRR (Diffuse scattered expiratory wheeze) - Respiratory Respiratory: No respiratory distress, Clear bilaterally - Abdomen Abdomen: Normal bowel sounds, Soft, Non distended. No: Non tender (Generally tender lower abdomen without guarding or rebound.) - Back Back: No CVA TTP - Derm Derm: Normal color, Warm and dry - Extremities Extremities: No deformity - Neuro Neuro: Alert and oriented X 3, power regulator 2-12 intact, No motor deficit, No sensory deficit, Normal speech, Other (Normal gait) Eye Opening: Spontaneous Motor: Localizes to Pain Results - Vitals Vitals: Vital Signs - 24 hr 10/24/22 11:21 Temperature 37.3 C Heart Rate 79 Respiratory 20 Rate Blood Pressure 136/77 H O2 Saturation 100 Oxygen O2 Source Room air - Labs Labs: Laboratory Tests 10/24/22 10/24/22 13:03 13:03 Urine Color DARK YELLOW Urine Clarity CLEAR Urine pH 7.0 Ur Specific [place] 1.010 Urine Protein NEGATIVE Urine Glucose (UA) NEGATIVE Urine Ketones NEGATIVE Urine Occult Blood NEGATIVE Urine Nitrite NEGATIVE Urine Bilirubin NEGATIVE Urine Urobilinogen 0.2 (NORMAL) Ur Leukocyte Esterase NEGATIVE Ur Microscopic Review NOT INDICATED Urine Culture Comments NOT INDICATED Urine HCG, Qual NEGATIVE - Rads (name of study) cxr Relevant Findings:: Final report received (No acute cardiopulmonary process) PD Medical Decision Making - ED course Complexity details: reviewed results, re-evaluated patient, considered differential, d/w patient ED course: 47-year-old female presents emergency department for evaluation of a headache that began about 3 days ago. Associated light and noise sensitivity. No fevers. She does have a history of migraines that have typically improved with triptan's in the past. She also has had a cough for about 1 week. This cough has exacerbated her lower abdominal pain. She did have a abdominal mesh surgery for uterine prolapse in late September. On exam she is alert and well-appearing. She prefers to wear an eye mask due to light sensitivity however she has no focal neurodeficits. I did obtain a urinalysis that showed no signs of infection. In order to treat the initial headache the patient was administered a liter of IV fluids, Toradol, Compazine and Benadryl and on reevaluation reported that her headache had not improved. Following this a single dose of 6 mg sumatriptan hand was injected subcutaneously and on reevaluation her headache had begun to subside. At this time I feel patient is stable for discharge home given unremarkable vital signs and normal neurological exam without fever. Clinically the history is most consistent with a migraine variant headache. I will write a prescription for a triptan for future use with headaches. Patient is requesting Tessalon Perles to help with cough which I feel is appropriate though the chest x-ray again shows no clinical findings suggest pneumonia. She is discharged home in stable condition with usual emergent return precautions discussed Departure - Departure Disposition: 01 Home, Self Care Clinical Impression: Headache Qualifiers: Headache type: other headache syndrome Qualified Code(s): G44.89 - Other headache syndrome Cough Qualifiers: Cough type: acute Qualified Code(s): R05.1 - Acute cough Condition: Stable Prescriptions: SUMAtriptan [Imitrex] 25 mg PO BID #6 tablet Benzonatate [Tessalon] 200 mg PO TID PRN #20 cap PRN Reason: Cough Comments: Mitzi you came to the emergency department because for 3 days you have been having a cough. You have also developed a headache that has not responded to medications at home. You do have a history of migraines and this feels similar. Here in the emergency department we did obtain a chest x-ray that showed no findings to suggest pneumonia or any other worrisome pulmonary process. Initially we did give you some Compazine Benadryl and Toradol which are typical combination of medications to control of migraine but they did not improve. Because you have had success with triptans in the past I then gave you a single dose of sumatriptan hand subcutaneously and on reevaluation your headache is started to improve. I expect that over the next 24 hours your headache slowly resolves. I sent a prescription for limited amount of sumatriptan to [facility] in [place]. I have also sent a prescription for Tessalon Perles a cough suppressant to [facility]. Please discuss this ED visit with your primary care doctor. Return to the ER for any worsening or new symptoms
--- NOTE | 2022-10-24 13:06 | XRAY Report ---
PROCEDURE: Chest 1 View X-Ray INDICATIONS: cough TECHNIQUE: One view of the chest was acquired. COMPARISON: Chest x-ray 09/19/2021 FINDINGS: Surgical changes and devices: None. Lungs and pleura: No pleural effusions or pneumothorax. Lungs are clear. Mediastinum: Mediastinal contours appear normal. Heart size is normal. Bones and chest wall: No suspicious bony lesions. Overlying soft tissues appear unremarkable. IMPRESSION: No acute cardiopulmonary process. Reviewed by: Sabi Salmon MD on 10/24/2022 1:05 PM PDT Approved by: Sabi Salmon MD on 10/24/2022 1:05 PM PDT Station ID: [id number]
[2022-10-24] MEDS ORDERED: SODIUM CHLORIDE 0.9% 1,000 ML IV STA (13:10)
[2022-10-24 13:12] LABS: BILIRUBIN,URINE NEGATIVE (NEGATIVE); GLUCOSE, URINE (UA) NEGATIVE (NEGATIVE); KETONES,URINE (UA) NEGATIVE (NEGATIVE); LEUKOCYTE ESTERASE, URINE NEGATIVE (NEGATIVE); NITRITE,URINE NEGATIVE (NEGATIVE); OCCULT BLOOD,URINE NEGATIVE (NEGATIVE); PROTEIN,URINE NEGATIVE (NEGATIVE); UROBILINOGEN,URINE 0.2 (NORMAL) E.U./dL (NORMAL)
[2022-10-24 13:15] LABS: CLARITY,URINE CLEAR (CLEAR); HCG UR QUAL NEGATIVE
[2022-10-24] MEDS ORDERED: SUMAtriptan 6 MG/0.5 ML VIAL SUBQ STA (13:32)
== END 2022-10-24 14:54 | disposition home or self-care (01) ==
LOC: ED 11:05
DX: G44.89 Other headache syndrome (principal); R05.1 Acute cough; F17.200 Nicotine dependence, unspecified, uncomplicated
CPT/HCPCS: 71045; 81003; 81025; 96372; 96374; 96375; 99283; 99284; J1200; 81001; 84702; 87086